=== PATIENT | female | born 1985 | race Caucasian/White ===

== ENCOUNTER → 2017-07-09 13:55 | Outpatient (CLI) | payer OTHER, BC, SELFPAY ==
[2017-07-09 15:30] LABS: Glucose 1 Hour 177 mg/dL
== END ==
PROVIDERS: Visit Provider Obstetrics & Gynecology
DX: Z34.90 Encounter for supervision of normal pregnancy, unspecified, unspecified trimester (principal)
CPT/HCPCS: 36415

== ENCOUNTER → 2017-07-22 07:10 | Outpatient (CLI) | payer OTHER, BC, SELFPAY ==
[2017-07-22 07:43] LABS: Glucose,Fasting 94 mg/dL (60-105)
[2017-07-22 09:01] LABS: Glucose 1 Hour 201 mg/dL (74-106)
[2017-07-22 09:58] LABS: Glucose 2 Hour 208 mg/dL (74-106)
[2017-07-22 11:02] LABS: Glucose 3 Hour 192 mg/dL (74-106)
== END ==
PROVIDERS: Visit Provider Obstetrics & Gynecology
DX: Z13.1 Encounter for screening for diabetes mellitus (principal); Z34.90 Encounter for supervision of normal pregnancy, unspecified, unspecified trimester
CPT/HCPCS: 36415; 81002; 82951; 82952

== ENCOUNTER 2017-08-23 11:02 | Outpatient (CLI) | payer OTHER, BC, SELFPAY ==
[2017-08-23 11:21] VITALS: BMI 28.8
[2017-08-23 11:29] VITALS: BP 119/76; PULSE 75; RESP 18; TEMP 36.9; O2SAT 99; BMI 28.8
== END 2017-08-23 11:55 | disposition home or self-care (01) ==
LOC: LAB 11:03 → OBOUT 11:08 → OB 11:11
PROVIDERS: Visit Provider Obstetrics & Gynecology
DX: O26.893 Other specified pregnancy related conditions, third trimester (principal); Z3A.33 33 weeks gestation of pregnancy
CPT/HCPCS: 96372

== ENCOUNTER 2017-08-24 11:05 | Outpatient (CLI) | payer OTHER, BC, SELFPAY ==
[2017-08-24 11:16] VITALS: BP 115/78; PULSE 103; RESP 16; TEMP 36.6; O2SAT 98; BMI 28.8
== END 2017-08-24 11:43 | disposition home or self-care (01) ==
LOC: OBOUT 11:07 → OB 11:08
PROVIDERS: Visit Provider Obstetrics & Gynecology
DX: O26.893 Other specified pregnancy related conditions, third trimester (principal); Z3A.33 33 weeks gestation of pregnancy
CPT/HCPCS: 96372

== ENCOUNTER → 2017-08-30 16:56 | Outpatient (REF) | payer OTHER, BC, SELFPAY | LOC: LAB 16:56 | PROVIDERS: Visit Provider Obstetrics & Gynecology | DX: Z34.90 Encounter for supervision of normal pregnancy, unspecified, unspecified trimester (principal) | CPT/HCPCS: 86403 ==

== ENCOUNTER 2017-09-28 03:35 | Inpatient (IN) ==
[2017-09-28 05:12] LABS: Basophils % 0.2 % (0.1-2.0); Eosinophils % 0.4 % (0.1-12.0); Hematocrit 40.2 % (37.0-47.0); Hemoglobin 13.6 g/dL (12.2-16.2); Lymphocytes # 2.2 K/mm3 (0.7-4.5); Lymphocytes % 25.4 K/mm3 (10-50); Mean Corpuscular HGB Conc 33.9 g/dL (31.8-35.4); Mean Corpuscular Volume 91.6 fl (81-99); Mean Platelet Volume 9.6 fl (7.4-10.4); Monocytes # 0.4 K/mm3 (0.1-1.0); Monocytes % 4.9 % (1.7-9.3); Neutrophils # 5.9 K/mm3 (1.8-7.8); Neutrophils % 69.1 % (37.0-80.0); Platelet Count 284 K/mm3 (142-424); Red Blood Count 4.39 M/mm3 (4.20-5.40); Red Cell Distribution Width 14.6 % (11.5-17.5); White Blood Count 8.5 K/mm3 (4.8-10.8)
--- NOTE | 2017-09-28 06:28 | Procedure Note ---
- Delivery Note Delivery Date:: 09/28/17 Delivery Time:: 05:52 Anesthesia Type: None Was labor medically induced?: No Gestational age (weeks): 39 delivered prior to 39 weeks?: No Justification for early elective delivery:: Active Labor Gender: Male at 1 minute: 8 at 5 minutes: 9 AF:: Meconium-stained Delivery Procedure:: Spontaneous vaginal delivery Placental Delivery Description: Spontaneous (This 32-year-old 3, now para 3, AB 0 white female was admitted at 39 weeks of gestation in active labor. She arrived at approximately 04 100 and was 8 cm of dilatation at that time with a bulging bag of water. She was having regular, strong contractions. I was called at over 0500, and arrived at 0520. Examination at that time revealed her cervix to be completely dilated. An epidural had been called for, but there was no time to accomplish that. The amniotic sac were ruptured spontaneously at 05 40, and meconium was noted. An internal electrode was then placed, but there was no evidence of distress. The patient continued to push and delivered spontaneously at 0552. The baby's nasal and oropharynx were bulb suctioned, and then DeLee suction for 3 cc of meconium stained fluid. The baby then cried spontaneously while still on the perineum. The cord was clamped and cut, 3 vessels were noted to be within the cord, and cord blood was obtained. The cord pH was 7.38. The baby was handed to the arms of the attending RN, who assigned Apgars of 8 at 1 minute and 9 at 5 minutes to the 7 pound 12 ounce, 19.5 inch male infant, born at 0552. Debris was recovered in good condition, with the manager laboratory (Dr. Mustafa) en route. The placenta delivered spontaneously, intact, at 0555, making the total time in labor 4 hours 55 minutes. The uterus was inspected and was felt to be clean, and was involuting well, with IV Pitocin running. There were no lacerations. The rectovaginal septum was intact at the close of the procedure. The estimated blood loss was 350 cc. The patient tolerated the procedure well, and was recovered in good condition. She is planning to breast-feed. She is also planning a tubal ligation. Her blood type is A+. Her rubella titer is immune.)
--- NOTE | 2017-09-28 13:51 | Operative Note ---
Date of procedure: 09/28/17 Pre-op Diagnosis:: Desire for sterilization Post-op Diagnosis:: Desire for sterilization Procedure performed:: bilateral tubal ligation Surgeon:: Jimmie David MD [employer]:: Ryan Rizzo Anesthesia: spinal Estimated blood loss (mL): 10 Operative findings:: Normal pelvis, desire for sterilization Operative note:: After the patient was prepped and draped in usual fashion and spinal anesthesia was administered, a semielliptical subumbilical incision was made and taken down through fat and fascia to the peritoneum, which was entered with Metzenbaum scissors and extended bilaterally. The involuting uterus was encountered. Using a finger sweep, first the left tube and then the right was grasped in its midsection and followed out to its fimbriated end for identification. The base of the tented up portion of each tube was crushed with a Heather clamp, and ligated with 2-0 Vicryl. The intervening segment of each tube was then excised with Metzenbaum scissors, and the stump coagulated with a Bovie. There was no undue bleeding. The tubes were allowed to retract into place. The peritoneum was grasped with Heather clamps, and closed with a running unlocked suture of 3-0 Vicryl. The subcutaneous fat and fascia were closed with a running unlocked suture of 2-0 Vicryl. The skin was closed with a subcuticular suture of 3-0 Vicryl, and appropriately dressed. The urine is clear in the Serrato catheter. The sponge and needle counts were correct. The estimated blood loss was less than 10 cc. The patient tolerated the procedure well, and was taken to PACU in excellent condition. Condition: stable Disposition: PACU Specimens:: Bilateral tubal segments Complications:: None
--- NOTE | 2017-09-28 14:00 | Progress Note ---
[facility] Anesthesia Checklist - Patient Identification Patient Identification: Arm Band - Structural Data Admitted From: Home Planned Operative Procedure/s: ppbtl Consent for Planned Operative Procedure(s) Verified: Yes Verified Documents: Surgical Consent, History and Physical - NPO Status Verified Time NPO: 00:00 - Additional verifications Anesthesia Reactions: No - Airway Assessment C-Spine Mobility Assessed: Yes (mp2) TMJ Mobility Assessed: Yes Dentition: Good Dentition - Neurological Assessment Level of Consciousness: Awake, Alert - Anesthesia Plan Anesthesia Risk discussed: Yes Anesthesia Plan: Verified ASA Class: II Anesthesia Type: Spinal (with MAC) [facility] Anesthesia HX I have reviewed the patient's past medical history: Yes Medical History: Reports:: Gastroesophageal Reflux Disease(GERD) Denies:: Diabetes Mellitus Type 1, Diabetes Mellitus Type 2 Other Medical History: Reports: Other (gestational diabetes) Other Surgeries: Yes: No Previous Surgery Amputation: No Fractures: No *Family Hx:: Hypertension, Diabetes
--- NOTE | 2017-09-28 14:01 | Progress Note ---
[facility] Anesthesia Record Part II Discharge Time: 14:20 Destination: [facility] PACU nurse assessment reviewed?: Yes Patient Condition:: Good Anesthesia Complications:: None
--- NOTE | 2017-09-28 14:01 | Progress Note ---
[facility] Anesthesia Record Part I Intake, IV Amount: 1,000 Estimated blood loss (mL): 5 Urine output (mL): 0 Blood Pressure: 107/69 SaO2: 96 Pulse Rate: 76 Respiratory Rate: 16 Temperature: 98.4 F Patient is:: Awake, Stable Stable to PACU at:: 13:50
[2017-09-28 23:43] VITALS: BP 129/69
[2017-09-29 07:08] LABS: Hematocrit 32.5 % (37.0-47.0); Hemoglobin 11.3 g/dL (12.2-16.2)
--- NOTE | 2017-09-29 07:38 | Progress Note ---
Internal Medicine - PN: Subj *Date: 09/29/17 *Time: 07:37 (This is and postop day #1. The patient is afebrile. Vital signs stable. Wound clean. Abdomen soft. Lochia normal. Uterine fundus involuting well. Hemoglobin 11.3 g. The baby is breast-feeding and doing well. The patient does not want him circumcised. Impression: Stable.) Exam Vital signs and Labs for Last 24 Hours: Temp Pulse Resp BP Pulse Ox 99.2 F 64 17 129/69 98 09/28/17 21:20 09/28/17 21:20 09/28/17 21:20 09/28/17 21:20 09/28/17 14:20 Laboratory Results - last 24 hr 09/28/17 06:04: Cord ABG pH 7.37 09/28/17 09:08: POC Glucose 98 09/29/17 06:04: Hgb 11.3 L, Hct 32.5 L I & O for Last 24 hours: Intake & Output 09/26/17 09/27/17 09/28/17 09/29/17 11:59 11:59 11:59 11:59 Intake Total 1151 / 1151 Output Total 5 / 5 Balance 1146 / 1146 Weight 167 lb 2.751 oz
--- NOTE | 2017-09-30 06:13 | Progress Note ---
Internal Medicine - PN: Subj *Date: 09/30/17 *Time: 06:12 (This is /postop #2. The patient is afebrile. Vital signs stable. Wound clean. Abdomen soft. Uterine fundus involuting well. Lochia normal. Hemoglobin 11.6 g. She will be discharged today.) Exam Vital signs and Labs for Last 24 Hours: Temp Pulse Resp BP Pulse Ox 99.2 F 64 17 129/69 98 09/28/17 21:20 09/28/17 21:20 09/28/17 21:20 09/28/17 21:20 09/28/17 14:20 Laboratory Results - last 24 hr 09/29/17 06:04: Hgb 11.3 L, Hct 32.5 L I & O for Last 24 hours: Intake & Output 09/27/17 09/28/17 09/29/17 09/30/17 11:59 11:59 11:59 11:59 Intake Total 1151 / 1151 Output Total 5 / 5 Balance 1146 / 1146 Weight 167 lb 2.751 oz
--- NOTE | 2017-09-30 06:16 | Discharge Summary ---
General - General Admission date:: 09/28/17 Discharge date: 09/30/17 Hospital Course Hospital Course: This 32-year-old 3, now female was admitted at 39 weeks of gestation in active labor at 8 cm of dilatation. She went steadily to completion, and delivered spontaneously, without an episiotomy, at 0552 on 09/28/17. The baby was an 8/9, 7 lbs. 12 oz., 19.5 inch male , who is breast-feeding and is done well. The patient did not wish the baby circumcised. , the patient underwent a bilateral tubal ligation under spinal anesthesia, without complications. and postoperatively, the patient is done well. She is eating and ambulating, and has had a bowel movement. Her wound is clean. Her abdomen is soft. Her lochia is normal. Her uterine fundus has involuted well. Her hemoglobin is 11.3 g, but she is clinically stable. Her blood type is A+. Her rubella titer is immune. She is not a smoker. She is discharged home on the second /postoperative day on iron and vitamins , and on Tylenol and Motrin, as needed for pain. She is given appropriate instructions as to diet, exercise, and wound care, and she is to return the office in 2 weeks for follow-up. Objective Vital signs: Temp Pulse Resp BP Pulse Ox 99.2 F 64 17 129/69 98 09/28/17 21:20 09/28/17 21:20 09/28/17 21:20 09/28/17 21:20 09/28/17 14:20 Results Labs on day of discharge: Labs from last 24 hours 09/29/17 06:04 Hgb 11.3 L Hct 32.5 L Discharge Plan - Patient Discharge Instructions - Follow up Plan Home Medications: Home Medications Medication Instructions Recorded Confirmed Type ferrous sulfate 325 mg (65 mg 325 mg PO DAILY tab 05/20/17 09/28/17 History iron) tablet,delayed release ranitidine 150 mg tablet 150 mg PO HS 05/25/17 09/28/17 History Prescriptions/Medication Reconciliation: No Action ferrous sulfate 325 mg (65 mg iron) tablet,delayed release 325 mg PO DAILY tab ranitidine 150 mg tablet 150 mg PO HS
== END 2017-09-30 11:40 | disposition home or self-care (01) ==
LOC: OB 03:35
PROVIDERS: ADMIT Nurse Practitioner Obstetrics & Gynecology; ATTEND Obstetrics & Gynecology